=== PATIENT | male | born 1965 | race Caucasian/White ===

== ENCOUNTER → 2019-06-08 | Outpatient (CLI) | payer MEDICAID ==
[~2019-06-08] MED LIST: IOHEXOL 300 MG/ML 100ML VIAL. IV ONE
--- NOTE | 2019-06-08 13:17 | KCIC ---
06/08/2019 INDICATION: History of ulcer. History of pain. Weight loss. Postprandial pain. COMPARISON STUDY: None TECHNIQUE: Multidetector CT imaging of the abdomen pelvis performed following the administration of IV contrast. 3-D maximum intensity projection reconstructions of abdominal vasculature were created on an independent workstation. Discussion: Visualized thoracic aorta is unremarkable. There is no evidence of abdominal aortic aneurysm or dissection. 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 Perhaps best appreciated on sagittal view, the configuration is such that compression from the overlying median arcuate ligament is possible. Superior mesenteric artery is patent. Renal arteries are patent. Inferior mesenteric artery is patent. Mild atherosclerotic calcification involving the right common iliac artery seen. Iliac arteries are otherwise patent. Retroaortic left renal vein noted, a common anatomical variant. There are a few small hyperdense lesions in the liver, likely other flash filling hemangiomas or small calcified granuloma Small cysts are also seen in the left and right hepatic lobes. Pancreas is unremarkable. Partially visualized bowel demonstrates no gross abnormality. There is an indeterminate 7 mm partially exophytic hypodense lesion in the mid left kidney. Small cyst appears be present in the inferior right kidney. Visualized osseous structures demonstrate no acute abnormality. IMPRESSION: 1. 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 This appearance is not uncommon, and in fact is most commonly an incidental imaging finding. However, in the appropriate clinical setting median arcuate ligament syndrome should be considered. 2. Indeterminate 7 mm low-density lesion, medial left kidney. Recommend 6 month follow-up multiphase abdominal CT CT DOSING PQRS STATEMENT: One or more of the following individualized dose reduction techniques were utilized for this examination: 1. Automated exposure control 2. Adjustment of the mA and/or kV according to patient size 3. Use of iterative reconstruction technique Electronically signed by: Gabriel Vale MD (06/08/2019 1:15 PM) [id number]
== END ==
LOC: KCIC CT 09:00
PROVIDERS: ATTEND Internal Medicine Gastroenterology
DX: I77.4 Celiac artery compression syndrome (principal); R63.4 Abnormal weight loss; I77.1 Stricture of artery; I70.8 Atherosclerosis of other arteries; K76.9 Liver disease, unspecified
CPT/HCPCS: 74175; Q9967

== ENCOUNTER 2019-11-03 20:54 | Emergency (ER) | payer MEDICAID ==
[~2019-11-03] VITALS: Ht 172.7 cm; Wt 70.4 kg
[2019-11-03 21:14] LABS: BASO # 0.1 x10^3/uL (0.0-0.2); BASO % 1 % (0-3); EOS % 0 % (0-3); HEMOGLOBIN 14.3 g/dL (13.0-17.5); LYMPH # 4.8 x10^3/uL (1.0-4.8); LYMPH % 44 % (24-48); MEAN CORPUSCULAR HEMOGLOBIN 31 pg (25-35); MEAN CORPUSCULAR HGB CONC 34 g/dL (31-37); MEAN CORPUSCULAR VOLUME 92 fL (79-100); MONO # 0.9 x10^3/uL (0.0-1.1); MONO % 8 % (0-9); NEUT # 5.1 x10^3/uL (1.8-7.7); NEUT % 47 % (31-73); PLATELET COUNT 204 x10^3/uL (140-400); RED BLOOD COUNT 4.59 x10^6/uL (4.30-5.70); RED CELL DISTRIBUTION WIDTH 14.3 % (11.5-14.5); WHITE BLOOD COUNT 10.9 x10^3/uL (4.0-11.0)
[2019-11-03 21:26] LABS: CALCIUM 8.9 mg/dL (8.5-10.1); CREATININE 0.9 mg/dL (0.7-1.3); POTASSIUM 3.6 mmol/L (3.5-5.1)
[2019-11-03 21:28] LABS: ACETAMIN < 2 mcg/ml (10-30); ETHANOL < 10 mg/dL (0-10); SALIC 8.8 mg/dL (2.8-20.0)
[2019-11-03 21:29] LABS: ALBUMIN 4.2 g/dL (3.4-5.0); ALBUMIN/GLOBULIN RATIO 1.2 (1.0-1.7); TOTAL BILIRUBIN 0.3 mg/dL (0.2-1.0); TOTAL PROTEIN 7.6 g/dL (6.4-8.2)
[2019-11-03] MEDS ORDERED: IV NORMAL SALINE 1000ML BAG 1,000 ML IV SCH (21:30)
--- NOTE | 2019-11-03 21:42 | PHYS DOC ---
Past Medical History Past Medical History: Stroke Past Surgical History: No Surgical History Additional Past Surgical Histo: UNK Smoking Status: Current Every Day Smoker Alcohol Use: None Social History Narrative: ECSTASY General Adult EDM: Chief Complaint: DRUG ABUSE HPI: HPI: Patient is a 53 year old male who arrives via EMS following an ingestion of marijuana and ecstasy. Patient had reported anxiety and therefore 911 was called. History and physical is limited due to altered mental status. Patient is confused to time but denies any pain at this time. Review of Systems: Review of Systems: Review of systems is unobtainable due to altered mental status Heart Score: Risk Factors: Risk Factors: DM, Current or recent (<one month) smoker, HTN, HLP, family history of CAD, obesity. Risk Scores: Score 0 - 3: 2.5% MACE over next 6 weeks - Discharge Home Score 4 - 6: 20.3% MACE over next 6 weeks - Admit for Clinical Observation Score 7 - 10: 72.7% MACE over next 6 weeks - Early Invasive Strategies Current Medications: Current Medications Medications (Trade) Dose Ordered Sig/Deepika Start Time Stop Time Status Last Admin Dose Admin Lorazepam (Ativan Inj) 2 mg 1X ONCE 11/03/19 21:30 11/03/19 21:31 DC 11/03/19 21:16 2 MG Sodium Chloride 1,000 ml @ 1,000 mls/hr Q1H 11/03/19 21:30 11/03/19 22:29 11/03/19 21:15 1,000 MLS/HR Allergies: Allergies: Allergies Coded Allergies Type Severity Reaction Last Updated Verified Penicillins Allergy Intermediate 11/03/19 Yes morphine Allergy Intermediate 11/03/19 Yes paroxetine Allergy Intermediate 11/03/19 Yes prochlorperazine Allergy Intermediate 11/03/19 Yes Physical Exam: PE: Constitutional: Well developed, well nourished, anxious and fidgety HENT: Normocephalic, atraumatic, bilateral external ears normal, no trismus nose normal. [] Eyes: Pupils 5 mm and reactive mild nystagmus EOMI, conjunctiva normal, no discharge. [] Neck: Normal range of motion, no tenderness, supple, no stridor. [] Cardiovascular:Heart rate regular rhythm, Lungs & Thorax: No respiratory distress Abdomen: soft, no tenderness, no masses, no pulsatile masses. [] Skin: Warm, mild diaphoresis, no erythema, no rash. [] Back: No tenderness, no CVA tenderness. [] Extremities: No tenderness, no cyanosis, no clubbing, ROM intact, no edema. [] Neurologic: Alert and oriented X 1, normal motor function, normal sensory function, no focal deficits noted. [] Psychologic: Anxious Current Patient Data: Labs: Laboratory Tests Test 11/03/19 21:05 White Blood Count 10.9 x10^3/uL (4.0-11.0) Red Blood Count 4.59 x10^6/uL (4.30-5.70) Hemoglobin 14.3 g/dL (13.0-17.5) Hematocrit 42.0 % (39.0-53.0) Mean Corpuscular Volume 92 fL (79-100) Mean Corpuscular Hemoglobin 31 pg (25-35) Mean Corpuscular Hemoglobin Concent 34 g/dL (31-37) Red Cell Distribution Width 14.3 % (11.5-14.5) Platelet Count 204 x10^3/uL (140-400) Neutrophils (%) (Auto) 47 % (31-73) Lymphocytes (%) (Auto) 44 % (24-48) Monocytes (%) (Auto) 8 % (0-9) Eosinophils (%) (Auto) 0 % (0-3) Basophils (%) (Auto) 1 % (0-3) Neutrophils # (Auto) 5.1 x10^3/uL (1.8-7.7) Lymphocytes # (Auto) 4.8 x10^3/uL (1.0-4.8) Monocytes # (Auto) 0.9 x10^3/uL (0.0-1.1) Eosinophils # (Auto) 0.0 x10^3/uL (0.0-0.7) Basophils # (Auto) 0.1 x10^3/uL (0.0-0.2) Sodium Level 138 mmol/L (136-145) Potassium Level 3.6 mmol/L (3.5-5.1) Chloride Level 102 mmol/L (98-107) Carbon Dioxide Level 23 mmol/L (21-32) Anion Gap 13 (6-14) Blood Urea Nitrogen 15 mg/dL (8-26) Creatinine 0.9 mg/dL (0.7-1.3) Estimated GFR (Cockcroft-Gault) 89.0 BUN/Creatinine Ratio 17 (6-20) Glucose Level 160 mg/dL (70-99) H Calcium Level 8.9 mg/dL (8.5-10.1) Total Bilirubin 0.3 mg/dL (0.2-1.0) Aspartate Amino Transferase (AST) 18 U/L (15-37) Alanine Aminotransferase (ALT) 17 U/L (16-63) Alkaline Phosphatase 76 U/L (46-116) Total Protein 7.6 g/dL (6.4-8.2) Albumin 4.2 g/dL (3.4-5.0) Albumin/Globulin Ratio 1.2 (1.0-1.7) Salicylates Level 8.8 mg/dL (2.8-20.0) Salicylate Last Dose Date Unknown Salicylate Last Dose Time Unknown Acetaminophen Level < 2 mcg/ml (10-30) L Acetaminophen Last Dose Date Unknown Acetaminophen Last Dose Time Unknown Ethyl Alcohol Level < 10 mg/dL (0-10) Laboratory Tests 11/03/19 21:05 Laboratory Tests 11/03/19 21:05 Vital Signs: Vital Signs Date Time Temp Pulse Resp B/P (MAP) Pulse Ox O2 Delivery O2 Flow Rate FiO2 11/03/19 21:06 98.2 80 29 167/83 (111) 97 Room Air 98.2 EKG: EKG: [] EKG interpreted by me normal sinus rhythm with rate of 69 normal axis normal intervals and normal ST segments Radiology/Procedures: Radiology/Procedures: [] Course & Med Decision Making: Course & Med Decision Making Pertinent Labs and Imaging studies reviewed. (See chart for details) [] Patient reassessed at 10 PM. Patient is alert knows he is at [place] now feels much better after Ativan. Patient is able to ambulate. Patient son will come and pick him up. Patient has no respiratory distress. Patient is stable to go home. Dragon Disclaimer: Dragon Disclaimer: This electronic medical record was generated, in whole or in part, using a voice recognition dictation system. Departure Departure Impression: Primary Impression: Ecstasy abuse Additional Impression: Marijuana abuse Disposition: HOME, SELF-CARE Condition: STABLE Referrals: CRYSTAL FRANCIS MD (PCP) 2-3 days Patient Instructions: Drug Abuse, FAQs Additional Instructions: EMERGENCY DEPARTMENT GENERAL DISCHARGE INSTRUCTIONS THANK YOU for coming to [facility] Emergency Department (ED) today and trusting us with your care. We trust that you had a positive experience in our Emergency Department. If you wish to speak to the department Management you can contact the preparation department supervisor at . YOUR FOLLOW UP INSTRUCTIONS ARE FOLLOWS: Do you have a private doctor? If you do not have a private doctor, please ask for a resource list of physicians or clinics that may be able to assist you with follow up care. The Emergency Physician has interpreted your x-rays. The X-ray specialist will also review them. If there is a change in the findings you will be notified in 48 hours when at all possible. A lab test or lab culture may have been done, your results will be reviewed and you will be notified if you need a change in treatment. ADDITIONAL INSTRUCTIONS AND INFORMATION Your care today has been supervised by a physician who is specially trained in emergency care. Many problems require more than one evaluation for a complete diagnosis and treatment. We recommend that you schedule your follow up appointment as recommended to ensure complete treatment of your illness or injury. If you are unable to obtain follow up care and continue to have a problem, or if your condition worsens we recommend that you return to the ED. We are not able to safely determine your condition over the phone nor are we able to give sound medical advice over the phone. For these safety reasons, if you call for medical advice we will ask you to come to the ED for further evaluation If you have any questions regarding these discharge instructions please call the ED at . SAFETY INFORMATION In the interest of safety, wellness, and injury prevention; we encourage you to wear your seatbelt, if you smoke; quit smoking, and we encourage your family to use protective helmet for bicycling and other sporting events that present an increased risk for head injury. IF YOUR SYMPTOMS WORSEN OR NEW SYMPTOMS DEVELOP, OR YOU HAVE CONCERNS ABOUT YOUR CONDITION; OR IF YOUR CONDITION WORSENS WHILE YOU ARE WAITING FOR YOUR FOLLOW UP APPOINTMENT; EITHER CONTACT YOUR PRIMARY CARE DOCTOR, THE PHYSICIAN WHOSE NAME AND NUMBER YOU WERE GIVEN, OR RETURN TO THE ED IMMEDIATELY. Justicifation of Admission Dx: Justifications for Admission: Justification of Admission Dx: N/A WINNIE LUX MD Nov 03, 2019 21:41
[2019-11-03 22:24] VITALS: BP 141/69
--- NOTE | 2019-11-04 14:35 | EKG ---
[facility] [address] [place] [address] Test Date: 2019-11-03 Test Time: 21:25:03 Pat Name: ANABELLE ESCALERA Department: Room: Gender: M [employer]: : 1965 Requested By: WINNIE LUX Order Number: [id number] Reading MD: Measurements Intervals [place] Rate: 69 P: 54 DE: 138 QRS: 60 QRSD: 88 T: 54 QT: 376 QTc: 409 Interpretive Statements SINUS RHYTHM NORMAL ECG RI6.01 No previous ECG available for comparison
== END 2019-11-03 22:41 | disposition home or self-care (01) ==
LOC: ER 20:54
DX: F12.10 Cannabis abuse, uncomplicated (principal); F19.10 Other psychoactive substance abuse, uncomplicated; I25.2 Old myocardial infarction; F17.200 Nicotine dependence, unspecified, uncomplicated; Z98.890 Other specified postprocedural states; Z88.0 Allergy status to penicillin; Z88.6 Allergy status to analgesic agent; Z88.8 Allergy status to other drugs, medicaments and biological substances
CPT/HCPCS: 36415; 80053; 80329; 85025; 93005; 96361; 96374; 99285; G0480; J2060; J7030

== ENCOUNTER → 2019-12-09 | Outpatient (CLI) | payer MEDICAID ==
[~2019-12-09] MED LIST changes: +ASPI-621 PO; +IOHEXOL 180 MG/ML 10 ML VIAL. ONE; -IOHEXOL 300 MG/ML 100ML VIAL. IV ONE; +OMEP20TA63 PO; +methylPREDNISolone ACETATE 40 MG/ML VIAL. ONE; +methylPREDNISolone ACETATE 80 MG/ML VIAL. ONE
--- NOTE | 2019-12-09 11:22 | PDOC2 ---
INITIAL PAIN CONSULT DATE OF SERVICE: DOS: DATE: 12/09/19 TIME: 11:14 CHIEF COMPLAINT: Chief Complaint: Low back and right lower extremity pain HISTORY OF PRESENT ILLNESS: 54-year-old male with long history since 1987 pain low back bilateral lower extremities worse on the right than left worse over the past 2 to 3 years without any specific injury or accident he is aware. 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 Patient reports now pain in the low back right lower extremity greater than left in the posterior lateral aspect thigh anterior thigh medial thigh medial lower leg posterior calf and into the foot as well. Patient scribes pain is constant sharp with numbness and tingling in the low back cramping in the leg and the back itself. Patient reports it wakes him to sleep release twice a night can affect his bowel bladder control but no loss of continence and does affect his body walk significantly with stiffness in the low back. Patient denies any previous therapies at this time no chiropractic treatment no physical therapy or other modalities. Patient has in the past tried pain medications but have always just cover the pain up and did not help significantly. Patient rates his pain is a 10 on a scale of 10 at all times and rates his disability rating 0-10 as a 10 in all categories family home responsibilities recreation social activity occupation self-care sexual behavior and life support activities patient have an MRI scan lumbar spine showing mult ilevel disc endplate and facet degenerative change most notably at L3-4 and L4-5 with right foraminal disc bulging resulting in moderate narrowing the inferior portion of the right neural foramen at L4-5 approaching inferior surface of the right foraminal L4 nerve root. Patient reports no loss of motor function but significant fatigability the right lower extremity with any walking or standing for few minutes PAST MEDICAL HISTORY: PMH: Leukemia as a child status post chemotherapy and radiation treatment, cigarette smoking, arthritis, weight loss PREVIOUS SURGERIES: Past Surgical Hx: No previous surgeries CURRENT MEDICATIONS: Current Meds: Active Scripts Medications Dose Route/Sig Max Daily Dose Days Date Category Prilosec Otc (Omeprazole Magnesium) 20 Mg Tablet.dr 1 Tab PO DAILY 30 12/09/19 Reported Excedrin Extra Strength Caplet (Aspirin/Acetaminophen/Caffeine) 1 Each Tablet 2 Each PO 5XDAY 12/09/19 Reported ALLERGIES; Allergies: Coded Allergies: Penicillins (Verified Allergy, Intermediate, 11/03/19) morphine (Verified Allergy, Intermediate, 11/03/19) paroxetine (Verified Allergy, Intermediate, 11/03/19) prochlorperazine (Verified Allergy, Intermediate, 11/03/19) FAMILY HISTORY: Family Hx: Cancer and stroke in patient's father SOCIAL HISTORY: Social Hx: Patient does not drink 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 he reports to smoke cigarettes about 1 pack a day for the past 20 years does not use any illegal illicit or recreational drugs is lives with his son locally in [facility] patient reports he is currently not employed REVIEW OF SYSTEMS: ROS: Positive for those items in history of present illness, all systems reviewed otherwise negative, complete full and well documented on patient's chart PHYSICAL EXAM: VS: Blood pressure is 124/91 pulse 81 respirations 18 temperature 97.4 F height is 5 feet 4 inches weight is 1 4 6 pounds PE: PHYSICAL EXAMINATION: GENERAL: The patient is awake, alert, oriented, appropriate, very pleasant demeanor HEENT: Shows normocephalic, atraumatic. Extraocular movements are intact and symmetrical. Oral cavity: Mucous membranes moist and pink. Dentition is intact. NECK: Shows anterior throat supple without palpable lymphadenopathy noted. Swallow reflex symmetrical. CHEST: Shows normal on inspection. Breath sounds are distant but clear bilaterally, no rales rhonchi or wheezes auscultated. HEART: Shows S1, S2 clear. No murmurs auscultated. ABDOMEN: Soft, nontender, nondistended. No palpable organomegaly is noted. No rebound or guarding demonstrated. BACK: Shows spine grossly in the midline. Normal-appearing cervical lordotic curvature. There is slightly increased thoracic kyphosis, some minor flattening of the lumbar lordotic curvature. Lumbar paraspinous muscles show symmetrical on inspection, on palpation shows some moderate tenderness diffusely throughout the upper, middle and lower distribution of the paraspinous muscles bilaterally and also into the lower thoracic paraspinous musculature, firm and tender, but without specific trigger points, without radiation of pain. The patient has good rotational motion of the lumbar spine, both laterally as well as extension and flexion without significant difficulty. No tenderness over the spinous processes, sacrum or sacroiliac regions. EXTREMITIES: Lower extremities show deep tendon reflexes 1+ in the patellar and tendo calcaneus tendons. Motor exam is 3 on a scale of 5 with right dorsiflexion, extension, quadriceps and hamstring flexion and 5/5 on the left. Peripheral pulses are 1+ posterior tibial. No peripheral edema is noted bilaterally. Lower extremities are warm and dry to touch, equal in color and appearance. Straight leg raise noted to be positive on the right about 35 degrees, left side is negative. Gaenslen's and Shaun's maneuvers are negative as well. The patient is able to stand but has difficulty raising from a seated position uses the arms of the chair once up ambulation is significantly antalgic patient guarding his low back significantly but not use any assistive devices to ambulate. SKIN: Shows warm and dry, good turgor. No edema. No sores, rashes or bruising throughout. IMPRESSION: Impression: 54-year-old male with long history of low back pain right lower extremity pain and radicular fashion worse over the past 2 to 3 years without any specific injury or accident he is aware of. MRI scan lumbar spine as noted History of leukemia Arthritis Cigarette smoking Plan: Options were discussed with the patient including conservative medical management is continued physical therapies interventional techniques and he like to pursue interventional techniques. We discussed a lumbar epidural steroid injection using description as well as anatomical models to describe the procedure. Risks were discussed including but not limited to: Bleeding, infection, possibility of epidural hematoma and subsequent neurological compromise, dural puncture, headaches, spinal cord and/or nerve damage, side effects of steroid medication, and poor results regarding pain control. Patient understands wished to proceed. Patient will return to clinic in approximate 2 weeks for follow-up was counseled as to return appointment activity level and side effects to be aware. We will also order physical therapy with stretching strength exercises postural retraining and traction. Procedure is lumbar epidural steroid injection under local anesthetic using sterile prep and drape at the L4-5 level using C-arm fluoroscopic guidance in both AP and lateral views medications injected is 120 mg Depo-Medrol + 10 mL preservative-free normal saline and 2 mL contrast- condition at discharge is stable patient tolerated procedure well had no complications. TONY CHAPIN MD Dec 09, 2019 11:22
== END | disposition home or self-care (01) ==
LOC: PNCL 08:53
PROVIDERS: ATTEND Anesthesiology
DX: M54.5 Low back pain (principal); M79.661 Pain in right lower leg; M19.90 Unspecified osteoarthritis, unspecified site; Z87.891 Personal history of nicotine dependence; Z92.21 Personal history of antineoplastic chemotherapy; Z85.6 Personal history of leukemia; Z82.3 Family history of stroke; Z88.0 Allergy status to penicillin; Z88.8 Allergy status to other drugs, medicaments and biological substances; Z79.899 Other long term (current) drug therapy
CPT/HCPCS: 62323; J1030; J1040; Q9965

== ENCOUNTER → 2019-12-28 | Outpatient (CLI) | payer MEDICAID ==
--- NOTE | 2019-12-28 09:59 | PDOC ---
Progress Note - Pain Clinic Date of Service: DOS: DATE: 12/28/19 TIME: 09:56 Diagnosis: Dx: Lumbar radiculopathy with lumbar degenerative disc disease History or Present Illness: HPI: 54-year-old male returns follow-up status post lumbar epidurals injection x1 on December 09, 2019. Patient reports about 50% improvement he fell however was walking his dog leash got under his leg and he tripped and fell twice causing increased pain reports prior to that temperature was about a week and a half ago prior to that he was doing much better with pain low back now returning in the right lower extremity posterior gluteus posterior lateral thigh lateral anterior thigh anteromedial thigh patient reports is a sharp shooting pain in the low back tingling and stabbing in the leg and can be severe and unbearable with weightbearing but again was doing much better prior to his falls patient reports the pain is a 10 on scale 10 is worse of the past week 10 on average 8 its least is a 10 today patient reports no new motor or sensory deficits no new bowel or bladder incontinence wakes him from sleep occasionally but overall he is doing better with distance walking feels little more stable on his feet and doing household activities with much greater ease and comfort and traveling with greater ease as well. Physical Exam: VS: Blood pressure is 121/89 pulse 81 respiration 16 temperature is 98.0 F height is 5 foot 4 inches weight is 148 pounds PE: PHYSICAL EXAMINATION: GENERAL: The patient is awake, alert, oriented, appropriate, very pleasant demeanor HEENT: Shows normocephalic, atraumatic. Extraocular movements are intact and symmetrical. Oral cavity: Mucous membranes moist and pink. NECK: Shows anterior throat supple without palpable lymphadenopathy noted. Swallow reflex symmetrical. CHEST: Shows normal on inspection. Breath sounds are clear bilaterally, no rales rhonchi or wheezes auscultated. HEART: Shows S1, S2 clear. No murmurs auscultated. ABDOMEN: Soft, nontender, nondistended. No palpable organomegaly is noted. No rebound or guarding demonstrated. BACK: Shows spine grossly in the midline. Normal-appearing cervical lordotic curvature. There is slightly increased thoracic kyphosis, some minor flattening of the lumbar lordotic curvature. Lumbar paraspinous muscles show symmetrical on inspection, on palpation shows some moderate tenderness diffusely throughout the upper, middle and lower distribution of the paraspinous muscles bilaterally, but without specific trigger points, without radiation of pain. The patient has good rotational motion of the lumbar spine, both laterally as well as extension and flexion without significant difficulty. No tenderness over the spinous processes, sacrum or sacroiliac regions. EXTREMITIES: Lower extremities show deep tendon reflexes 1+ in the patellar and tendo calcaneus tendons. Motor exam is 4 on a scale of 5 with right dorsiflexion, extension, quadriceps and hamstring flexion and 5/5 on the left. Peripheral pulses are 1+ posterior tibial. No peripheral edema is noted bilaterally. Lower extremities are warm and dry to touch, equal in color and appearance. SKIN: Shows warm and dry, good turgor. No edema. No sores, rashes or bruising throughout. Procedure: Procedure: Options were discussed with the patient. Patient chart was reviewed his current medication regimen updated current review of systems updated today as well. We will proceed with a second lumbar epidural straight injection today. Risks were discussed including but not limited to: Bleeding, infection, possibility of epidural hematoma and subsequent neurological compromise, dural puncture, headaches, spinal cord and/or nerve damage, side effects of steroid medication, and poor results regarding pain control. Patient understands wished to proceed. Patient will return to clinic in possibly 2 weeks for follow-up was counseled as to return appointment activity level and side effects to be aware. Medication Injected: Med Injected: Procedure is lumbar epidural steroid injection under local anesthetic using sterile prep and drape at the L4-5 level using C-arm fluoroscopic guidance in both AP and lateral views medications injected is 120 mg Depo-Medrol + 10 mL preservative-free normal saline and 2 mL contrast- condition at discharge is stable patient tolerated procedure well had no complications. Condition at Discharge: Condition at Discharge: Condition at discharge is stable patient tolerated procedure well had no complications. TONY CHAPIN MD Dec 28, 2019 09:59
== END | disposition home or self-care (01) ==
LOC: PNCL 08:59
PROVIDERS: ATTEND Anesthesiology
DX: M51.16 Intervertebral disc disorders with radiculopathy, lumbar region (principal); Z88.0 Allergy status to penicillin; Z88.8 Allergy status to other drugs, medicaments and biological substances; Z79.899 Other long term (current) drug therapy
CPT/HCPCS: 62323; J1030; J1040; Q9965

== ENCOUNTER → 2020-01-27 | Outpatient (CLI) | payer MEDICAID ==
[~2020-01-27] MED LIST changes: -IOHEXOL 180 MG/ML 10 ML VIAL. ONE; -methylPREDNISolone ACETATE 40 MG/ML VIAL. ONE; -methylPREDNISolone ACETATE 80 MG/ML VIAL. ONE
--- NOTE | 2020-01-27 12:16 | CARD ---
MR#: [id number] Date of Study: 01/27/2020 Ordering Physician: CRYSTAL FRANCIS, Referring Physician: CRYSTAL FRANCIS, Tech: Nancy Willoughby APPROVED REPORT EXAM: Two-dimensional and M-mode echocardiogram with Doppler and color Doppler. Other Information Quality : AverageHR: 76bpm INDICATION Syncope RISK FACTORS Smoking 2D DIMENSIONS RVDd3.4 (2.9-3.5cm)Left Atrium(2D)2.8 (1.6-4.0cm) IVSd0.9 (0.7-1.1cm)Aortic Root(2D)3.5 (2.0-3.7cm) LVDd4.1 (3.9-5.9cm)LVOT Diameter2.0 (1.8-2.4cm) PWd0.9 (0.7-1.1cm)LVDs2.7 (2.5-4.0cm) FS (%) 33.8 %SV47.6 ml LVEF(%)63.1 (>50%) Aortic Valve AoV Peak Js.110.6cm/sAoV VTI22.1cm AO Peak GR.4.9mmHgLVOT Peak Js.96.1cm/s LVOT VTI 17.88cmAO Mean GR.3mmHg [place] (VMAX)2.85pq1RWJ (VTI)2.59cm2 Mitral Valve MV E Oinctbhx22.4cm/sMV DECEL [id number] MV A Xosjvayr72.6cm/sMV BVW90wu E/A Ratio1.2MVA (PHT)3.33cm2 TDI E/Lateral E'4.3E/Medial E'6.4 Pulmonary Valve PV Peak Vnfyyzxp484.8cm/sPV Peak Grad.5mmHg Tricuspid Valve TR P. Aglfkpxx634qs/sRAP ATKAWLVX4gdTj TR Peak Gr.27wyDnDHYI35ubRe Pulmonary Vein S1 Wdkxztod41.6cm/sD2 Pvbmadzh42.7cm/s PVa [id number] LEFT VENTRICLE The left ventricle is normal size. There is normal left ventricular wall thickness. The left ventricu lar systolic function is normal. The Ejection Fraction is 55-60%. There is normal LV segmental wall m otion. RIGHT VENTRICLE The right ventricle is normal size. There is normal right ventricular wall thickness. The right ventr icular systolic function is normal. ATRIA The left atrium size is normal. The right atrium size is normal. The interatrial septum is intact wit h no evidence for an atrial septal defect or patent foramen ovale as noted on 2-D or Doppler imaging. AORTIC VALVE The aortic valve is thickened but opens well. Doppler and Color Flow revealed no significant aortic r egurgitation. There is no significant aortic valvular stenosis. Calculated aortic valve area is 2.55 cm2 with maximum pressure gradient of 6 mmHg and mean pressure gradient of 3 mmHg. MITRAL VALVE The mitral valve is normal in structure and function. There is no evidence of mitral valve prolapse. There is no mitral valve stenosis. Doppler and Color Flow revealed no mitral valve regurgitation note d. TRICUSPID VALVE The tricuspid valve is normal in structure and function. Doppler and Color Flow revealed trace tricus pid regurgitation with an estimated PAP of 27 mmHg. There is no tricuspid valve stenosis. PULMONIC VALVE The pulmonic valve is not well visualized. Doppler and Color Flow revealed no pulmonic valvular regur gitation. GREAT VESSELS The aortic root is normal in size. The IVC is normal in size and collapses >50% with inspiration. PERICARDIAL EFFUSION There is no evidence of significant pericardial effusion. Critical Notification Critical Value: No <Conclusion> The left ventricular systolic function is normal. The Ejection Fraction is 55-60%. There is normal LV segmental wall motion. Trace tricuspid regurgitation with an estimated PAP of 27 mmHg. There is no evidence of significant pericardial effusion. Signed by : J Carlos Booker, Electronically Approved : 01/27/2020 12:15:28
== END ==
LOC: ECHO 07:49
PROVIDERS: ATTEND Internal Medicine
DX: R55 Syncope and collapse (principal); S32.009S Unspecified fracture of unspecified lumbar vertebra, sequela; M54.5 Low back pain; G89.29 Other chronic pain; M25.551 Pain in right hip
CPT/HCPCS: 93306